=== PATIENT | female | born 1960 | race Caucasian/White ===

== ENCOUNTER 2017-01-09 22:37 | Emergency (ER) | payer OTHER ==
[2017-01-10 02:42] LABS: HEMOGLOBIN 13.6 gm/dl (12.3-15.3); RED BLOOD COUNT 4.54 M/UL (4.00-5.10); WHITE BLOOD COUNT 13.3 K/UL (4.5-11.0)
[2017-01-10 03:01] LABS: BUN/CREATININE RATIO 13 (0-10)
== END 2017-01-10 04:04 | disposition home or self-care (01) ==
LOC: ER1 22:37
PROVIDERS: Family Medicine
DX: M54.10 Radiculopathy, site unspecified (principal); J44.9 Chronic obstructive pulmonary disease, unspecified; F17.210 Nicotine dependence, cigarettes, uncomplicated
CPT/HCPCS: 36415; 71020; 72125; 80053; 82550; 82553; 83874; 84484; 85025; 93005; 94640; 94664; 96374; 96375; 99284; J1885; J2930